=== PATIENT | male | born 1955 | race Caucasian/White ===

== ENCOUNTER 2024-01-30 07:12 | Outpatient (OUT) | payer MEDICARE, SELFPAY ==
[2024-01-30 07:28] LABS: Basophils Percent Auto 0.3 % (0.2-2.0); Eosinophils Absolute Auto 0.1 10^3/uL (0.0-0.7); Eosinophils Percent Auto 1.6 % (0.9-7.0); Hematocrit 38.2 % (42.0-54.0); Hemoglobin 12.2 g/dL (14.0-18.0); Immature Granulocytes Abs Auto 0.01 10^3/uL (0.00-0.03); Immature Granulocytes Pct Auto 0.2 % (0.0-0.5); Lymphocytes Absolute Auto 1.7 10^3/uL (1.2-3.8); Lymphocytes Percent Auto 25.9 % (20.5-60.0); Mean Corpuscular HGB Conc 31.9 g/dL (29.9-35.2); Mean Corpuscular Hemoglobin 28.9 pg (25.9-34.0); Mean Corpuscular Volume 90.5 fL (80.0-94.0); Monocytes Absolute Auto 0.8 10^3/uL (0.3-0.8); Monocytes Percent Auto 11.6 % (1.7-12.0); Neutrophils Absolute Auto 3.9 10^3/uL (1.4-6.5); Neutrophils Percent Auto 60.4 % (43.0-75.0); Platelet Count 288 10^3/uL (150-450); Red Blood Count 4.22 10^6/uL (4.70-6.10); Red Cell Distribution Width 11.7 % (11.0-15.0); White Blood Count 6.4 10^3/uL (4.0-11.0)
[2024-01-30 07:29] LABS: Bilirubin Urine NEGATIVE (NEGATIVE); Blood Urine NEGATIVE (NEGATIVE); Clarity Urine CLEAR (CLEAR); Color Urine LT. YELLOW (YELLOW); Glucose Urine UA NEGATIVE (NEGATIVE); Ketones Urine NEGATIVE (NEGATIVE); Leukocyte Esterase Urine NEGATIVE (NEGATIVE); Nitrite Urine NEGATIVE (NEGATIVE); Protein Urine NEGATIVE (NEG/TRACE); Specific Gravity Urine 1.015 (1.005-1.025); Urobilinogen Urine 0.2 EU/dL (0.2-1.0)
[2024-01-30 08:25] LABS: Alanine Aminotransferase 45 U/L (16-63); Albumin Globulin Ratio 0.9; Albumin Level 3.5 g/dL (3.4-5.0); Alkaline Phosphatase 76 U/L (46-116); Anion Gap 7.2; Aspartate Amino Transferase 33 U/L (15-37); BUN Creatinine Ratio 15.4; Bilirubin Total 0.3 mg/dL (0.2-1.0); Calcium 8.6 mg/dL (8.5-10.1); Carbon Dioxide 30.5 mmol/L (21.0-32.0); Chloride 101 mmol/L (98-107); Chol HDL Ratio 4.3; Cholesterol 215 mg/dL (<=200); Estimated GFR (African America >60 (>=60); Estimated GFR (Non-African Ame >60 (>=60); Globulin 3.9 g/dL; Glucose 83 mg/dL (74-106); HDL Cholesterol 50 mg/dL (40-60); Potassium 3.7 mmol/L (3.5-5.1); Sodium 135 mmol/L (136-145); Total Protein 7.4 g/dL (6.4-8.2); Triglycerides 97 mg/dL (<=150); VLDL CHOLESTEROL 19.4 mg/dL
[2024-01-30 09:16] LABS: Prostate Specific Antigen Scrn 0.42 ng/mL (<=4.00)
== END 2024-01-30 07:13 | disposition home or self-care (01) ==
LOC: LAB 07:12
PROVIDERS: PCP Family Medicine; Visit Provider Family Medicine
DX: E78.5 Hyperlipidemia, unspecified (principal); Z12.5 Encounter for screening for malignant neoplasm of prostate; R35.1 Nocturia
CPT/HCPCS: 36415; 80053; 80061; 81003; 85025; G0103

== ENCOUNTER 2024-03-04 16:05 | Outpatient (OUT) | payer MEDICARE, SELFPAY ==
--- OUTSIDE RECORDS SUMMARY | 2024-03-04 16:09 | XMS_ITS | CCD ---
Author Organization [facility] [employer] [facility] Medications Current Medications Medication Drug Class(es) Dates Sig (Normalized) Sig (Original) mecobalamin (1 source) Start: 02-07-2024 Mecobalamin (Vitamin B12) Active MCG PO .q3days February 07, 2024 12:00am Cf-Dsq-Rijmo-K1-Lyc open-Lutein (Centrum Silver Men) [id number] mcg tablet (1 source) Start: 02-07-2024 take 1 tablet by mouth once daily Ql-Kij-Wtuya-K1-Ly copen-Lutein (Centrum Silver Men) [id number] mcg tablet Active 1 TAB PO Daily February 07, 2024 12:00am Problems Problem Classification Problem Date Documented Da te Episodic/Chronic Deficiency and other anemia (1 source) Hemoglobin low; Translations: [Anemia, unspecified] 02-07-2024 Episodic Deficiency and other anemia (1 source) Anemia, unspecified; Translations: [Anemia, unspecified] 02-07-2024 Episodic Disorders of lipid metabolism (2 sources) Hyperlipidemia; Translations: [Hyperlipidemia, unspecified] 02-07-2024 Chronic Other lower respiratory disease (1 source) Dyspnea; Translations: [Shortness of breath] 02-07-2024 Episodic Other lower respiratory disease (1 source) Shortness of breath; Translations: [Shortness of breath] 02-07-2024 Episodic Other nutritional; endocrine; and metabolic disorders (1 source) Weight loss; Translations: [Abnormal weight loss] 02-07-2024 Episodic Other nutritional; endocrine; and metabolic disorders (1 source) Abnormal weight loss; Translations: [Loss of weight] 02-07-2024 Episodic Other screening for suspected conditions (not mental disorders or infectious disease) (2 sources) Patient encounter status; Translations: [Encounter for screening for malignant neoplasm of prostate] 10-02-2024 Episodic Results Test Name Value Interpretation Reference Range Facil ity Basophils Auto (Bld) [#/Vol] on 01-30-2024 Basophils (Bld) [#/Vol] 0.0 10 3/uL 0.0-0.1 [facility] Basophils/100 WBC Auto (Bld) on 01-30-2024 Basophils/100 WBC (Bld) 0.3 % 0.2-2.0 [facility] Cholesterol in LDL Calc [Mas s/Vol]on 01-30-2024 Cholesterol in LDL [Mass/Vol] 146.0 mg/dL [facility] Comment on above: <100 mg/dl [id number] 0-129 mg/dl NEAR OR ABOVE [id number] mg/dl BORDERLINE [id number] mg/dl HIGH>190 mg/dl VERY HIGH Cholesterol in VLDL Calc [Ma ss/Vol]on 01-30-2024 Cholesterol in VLDL [Mass/Vol] 19.4 mg/dL [facility] Eosinophils/100 WBC Auto (Bl d)on 01-30-2024 Eosinophils/100 WBC (Bld) 1.6 % 0.9-7.0 [facility] Erythrocyte distribution wid th Auto (RBC) [Ratio]on 01-30-2024 Erythrocyte distribution width (RBC) [Ratio] 11.7 % 11.0-15.0 [facility] Estimated glomerular filtrat ion rate (GFR) non- Americanon 01-30-2024 GFR/1.73 sq M.predicted among non-blacks MDRD (S/P/Bld) [Vol rate/Area] mL/min/{1.73_m2} >=60 [facility] Globulin Calc (S) [Mass/Vol] on 01-30-2024 Globulin (S) [Mass/Vol] 3.9 g/dL [facility] Hematocrit Auto (Bld) [Volum e fraction]on 01-30-2024 Hematocrit (Bld) [Volume fraction] 38.2 % Low 42.0-54.0 [facility] Hemoglobin [Mass/volume] in Bloodon 01-30-2024 Hemoglobin (Bld) [Mass/Vol] 12.2 g/dL Low 14.0-18.0 [facility] Laboratory - Chemistry and C hemistry - challengeon 01-30-2024 Albumin [Mass/Vol] 3.5 g/dL 3.4-5.0 [facility] ALP [Catalytic activity/Vol] 76 U/L 46-116 [facility] ALT [Catalytic activity/Vol] 45 U/L 16-63 [facility] AST [Catalytic activity/Vol] 33 U/L 15-37 [facility] Bilirubin [Mass/Vol] 0.3 mg/dL 0.2-1.0 [facility] Calcium [Mass/Vol] 8.6 mg/dL 8.5-10.1 [facility] Chloride [Moles/Vol] 101 mmol/L 98-107 [facility] Cholesterol [Mass/Vol] 215 mg/dL High <=200 [facility] Cholesterol in HDL [Mass/Vol] 50 mg/dL 40-60 [facility] Comment on above: > or =60 mg/dl - LOW CARDIOVASCULAR RISK<40 mg/dl - HIGH CARDIOVASCULAR RISK CO2 [Moles/Vol] 30.5 mmol/L 21.0-32.0 [facility] Creatinine [Mass/Vol] 0.91 mg/dL 0.70-1.30 [facility] GFR/1.73 sq M.predicted MDRD (S/P/Bld) [Vol rate/Area] mL/min/{1.73_m2} >=60 [facility] Glucose [Mass/Vol] 83 mg/dL 74-106 [facility] Potassium [Moles/Vol] 3.7 mmol/L 3.5-5.1 [facility] Protein [Mass/Vol] 7.4 g/dL 6.4-8.2 [facility] Sodium [Moles/Vol] 135 mmol/L Low 136-145 [facility] Triglyceride [Mass/Vol] 97 mg/dL <=150 [facility] Urea nitrogen [Mass/Vol] 14.0 mg/dL 7.0-18.0 [facility] Urea nitrogen/Creatinine [Mass ratio] 15.4 mg/mg [facility] Bilirubin Ql (U) Negative NEGATIVE [facility] Glucose (U) [Mass/Vol] Negative NEGATIVE [facility] Ketones Ql (U) Negative NEGATIVE [facility] pH (U) 7.0 [pH] 5.0-9.0 [facility] Specific gravity (U) [Rel density] 1.015 1.005-1.025 [facility] Urobilinogen Qn (U) 0.2 {Mason'U}/dL 0.2-1.0 [facility] Laboratory - Hematology and Cell countson 01-30-2024 Immature granulocytes/100 WBC (Bld) 0.2 % 0.0-0.5 [facility] Laboratory - Specimen inform ationon 01-30-2024 Appearance (U) CLEAR CLEAR [facility] Color (U) LT. YELLOW YELLOW [facility] Laboratory - Urinalysison Leukocyte esterase Test strip Ql (U) Negative NEGATIVE [facility] Nitrite Ql (U) Negative NEGATIVE [facility] Protein Ql (U) Negative NEG/TRACE [facility] Leukocytes [#/volume] correc starla for nucleated erythrocytes in Blood by Automated counon 01-30-2024 WBC corrected for nucl RBC Auto (Bld) [#/Vol] 6.4 10 3/uL 4.0-11.0 [facility] Lymphocytes Auto (Bld) [#/Vo l]on 01-30-2024 Lymphocytes (Bld) [#/Vol] 1.7 10 3/uL 1.2-3.8 [facility] Lymphocytes/100 WBC Auto (Bl d)on 01-30-2024 Lymphocytes/100 WBC (Bld) 25.9 % 20.5-60.0 [facility] MCH Auto (RBC) [Entitic mass ]on 01-30-2024 MCH (RBC) [Entitic mass] 28.9 pg 25.9-34.0 [facility] MCHC Auto (RBC) [Mass/Vol]on 01-30-2024 MCHC (RBC) [Mass/Vol] 31.9 g/dL 29.9-35.2 [facility] MCV Auto (RBC) [Entitic vol] on 01-30-2024 MCV (RBC) [Entitic vol] 90.5 fL 80.0-94.0 [facility] Monocytes Auto (Bld) [#/Vol] on 01-30-2024 Monocytes (Bld) [#/Vol] 0.8 10 3/uL 0.3-0.8 [facility] Monocytes/100 WBC Auto (Bld) on 01-30-2024 Monocytes/100 WBC (Bld) 11.6 % 1.7-12.0 [facility] Neutrophils Auto (Bld) [#/Vo l]on 01-30-2024 Neutrophils (Bld) [#/Vol] 3.9 10 3/uL 1.4-6.5 [facility] Neutrophils/100 WBC Auto (Bl d)on 01-30-2024 Neutrophils/100 WBC (Bld) 60.4 % 43.0-75.0 [facility] No Panel Informationon 01-29 Eosinophils # (Auto) 0.1 10 3/uL 0.0-0.7 [facility] Immature Granulocyte # (Auto) 0.01 10 3/uL 0.00-0.03 [facility] Prostate Specific Antigen Screen 0.42 ng/mL <=4.00 [facility] Urine Occult Blood Negative NEGATIVE [facility] Platelet mean volume Auto (B ld) [Entitic vol]on 01-30-2024 Platelet mean volume (Bld) [Entitic vol] 10.0 fL 9.5-13.5 [facility] Platelets Auto (Bld) [#/Vol] on 01-30-2024 Platelets (Bld) [#/Vol] 288 10 3/uL 150-450 [facility] RBC Auto (Bld) [#/Vol]on RBC (Bld) [#/Vol] 4.22 10 6/uL Low 4.70-6.10 [facility] Serum or plasma albumin/glob ulin mass ratioon 01-30-2024 Albumin/Globulin [Mass ratio] 0.9 {ratio} [facility] Serum or plasma anion gap de terminationon 01-30-2024 Anion gap [Moles/Vol] 7.2 mmol/L [facility] Serum or plasma total choles terol/high density lipoprotein (HDL) cholesterol mass dayan 01-30-2024 Cholesterol.total/Cho lesterol in HDL [Mass ratio] 4.3 {ratio} [facility] Comment on above: 3.3 - 4.4 LOW RISK4. 4 - 7.1 AVERAGE RISK7.1 - 11.0 MODERATE RISK>11.0 HIGH RISK Vital Signs Date Time Vital Sign Value Performing Clinician Christiana ramos 02-07-2024 09:36-0400 Body height 171.45 cm [facility] 02-07-2024 09:36-0400 Body mass index (BMI) [Ratio] 23.1 kg/m2 [facility] 02-07-2024 09:36-0400 Body temperature 97.7 [degF] [facility] 02-07-2024 09:36-0400 Body weight 68.03 kg [facility] 02-07-2024 09:36-0400 Diastolic blood pressure 64 mm[Hg] [facility] 02-07-2024 09:36-0400 Heart rate 57 /min [facility] 02-07-2024 09:36-0400 Respiratory rate 16 /min [facility] 02-07-2024 09:36-0400 SaO2% (BldA) [Mass fraction] 99 % [facility] 02-07-2024 09:36-0400 Systolic blood pressure 112 mm[Hg] [facility] Encounters Encounter Date Encounter Type Care Provider Facility Start: 02-07-2024 End: 02-07-2024 ambulatory [facility] Work Phone: Start: 02-07-2024 End: 02-07-2024 Patient encounter procedure [facility] [place] Work Phone: Start: 01-30-2024 Non-patient / Non-visit [facility] Work Phone: Plan of Treatment Date Care Activity Detail Author Start: 02-07-2024 Patient referral [facility] Work Phone: Patient referral [facility] Work Phone: [facility] Immunizations Immunization Date Immunization Notes Care Provider Fa cilikirti 02-21-2023 COVID-19 (PFIZER) 12Y and older [facility] 02-21-2023 Influenza vaccine, quadrivalent, adjuvanted [facility] 04-11-2021 COVID-19 mRNA, Comir jimmy (Pfizer) [facility] 02-20-2021 influenza, injectabl e, quadrivalent, preservative free [facility] 08-11-2020 COVID-19 mRNA, Comir jimmy (Pfizer) [facility] 07-20-2020 COVID-19 mRNA, Comir jimmy (Pfizer) [facility] 02-11-2020 Influenza, injectabl e, Madin Miley Canine Kidney, preservative free, quadrivalent [facility] 04-17-2012 influenza, seasonal, injectable [facility] Payers Date Payer Category Payer Policy ID Medicare Medicare [id number] Unknown [id number] Unknown [facility] Health Claims [id number] Social History Date Type Detail Facility Start: 02-07-2024 Tobacco smoking stat us KYIS Never smoked tobacco (finding) [facility] Start: 1955 Sex Assigned At Male [facility] Evaluation note Note Date & Type Note Facility Evaluation note Diagnosis Onset Date Hyperlipidemia acute Low hemoglobin acute Prostate cancer screening ac kathleen Shortness of breath acute Weight loss acute [facility] Work Phone: Hospital Discharge instructions Note Date & Type Note Facility Hospital Discharge instructions Ambulatory OrdersReferral to Gastroenterology Time Frame: 02/07/24, Location: None Selected [facility] Work Phone: Chief Complaint and Reason for Visit Chief Complaint review labs Reason for Visit Hyperlipidemia Low hemoglobin Prostate cancer screening Shortness of breath Weight loss Advance Directives Advance Directive Response Recorded Date/ Time Advance Directives No January 10:12am Additional Source Comments Care Teams (unrecognized sec tion and content) Team Status: Active Member Role Status Dates Rajeev Amador , DO Primary Care Provider Active Team Status: Active Member Role Status Dates Rajeev Amador , DO Primary Care Provide r, Attending Provider Active Start: January 30, 2024 Team Status: Inactive Member Role Status Dates Rajeev Amador , DO Primary Care Provide r, Attending Provider Active Start: February 07, 2024 End: February 07, 2024 Goals (unrecognized section and content) Goals may be documented in a n alternate section FOR RECORDS PERTAINING TO PATIENTS WHO ARE OR HAVE BEEN ENROLLED IN A CHEMICAL DEPENDENCY/SUBSTANCEABUSE PROGRAM, SOME INFORMATION MAY BE OMITTED. This clinical summary was aggregated from multiple sources. Caution should be exercised in using it in the provision of clinical care. This summary normalizes information from multiple sources, and as a consequence, information in this document may materially change the coding, format and clinical context of patient data. In addition, data may be omitted in some cases. CLINICAL DECISIONS SHOULD BE BASED ON THE PRIMARY CLINICAL RECORDS. [facility] [employer] [facility]. provides no warranty or guarantee of the accuracy or completeness of information in this document.
[2024-03-04 16:35] LABS: Basophils Percent Auto 0.3 % (0.2-2.0); Eosinophils Absolute Auto 0.1 10^3/uL (0.0-0.7); Hematocrit 38.5 % (42.0-54.0); Hemoglobin 12.6 g/dL (14.0-18.0); Immature Granulocytes Abs Auto 0.02 10^3/uL (0.00-0.03); Immature Granulocytes Pct Auto 0.3 % (0.0-0.5); Lymphocytes Absolute Auto 2.1 10^3/uL (1.2-3.8); Lymphocytes Percent Auto 29.8 % (20.5-60.0); Mean Corpuscular HGB Conc 32.7 g/dL (29.9-35.2); Mean Corpuscular Hemoglobin 29.2 pg (25.9-34.0); Mean Corpuscular Volume 89.1 fL (80.0-94.0); Monocytes Absolute Auto 0.9 10^3/uL (0.3-0.8); Monocytes Percent Auto 13.1 % (1.7-12.0); Neutrophils Absolute Auto 3.8 10^3/uL (1.4-6.5); Neutrophils Percent Auto 55.5 % (43.0-75.0); Platelet Count 271 10^3/uL (150-450); Red Blood Count 4.32 10^6/uL (4.70-6.10); Red Cell Distribution Width 12.2 % (11.0-15.0); White Blood Count 6.9 10^3/uL (4.0-11.0)
== END 2024-03-04 16:06 | disposition home or self-care (01) ==
LOC: LAB 16:06
PROVIDERS: PCP Family Medicine; Visit Provider Family Medicine
DX: D64.9 Anemia, unspecified (principal)
CPT/HCPCS: 36415; 85025

== ENCOUNTER 2024-04-09 07:53 | Outpatient (OUT) | payer MEDICARE, SELFPAY ==
[2024-04-09 15:12] LABS: Basophils Percent Auto 0.2 % (0.2-2.0); Eosinophils Absolute Auto 0.1 10^3/uL (0.0-0.7); Eosinophils Percent Auto 1.1 % (0.9-7.0); Hematocrit 39.6 % (42.0-54.0); Hemoglobin 13.1 g/dL (14.0-18.0); Immature Granulocytes Abs Auto 0.03 10^3/uL (0.00-0.03); Immature Granulocytes Pct Auto 0.4 % (0.0-0.5); Lymphocytes Percent Auto 24.1 % (20.5-60.0); Mean Corpuscular HGB Conc 33.1 g/dL (29.9-35.2); Mean Corpuscular Hemoglobin 29.1 pg (25.9-34.0); Mean Platelet Volume 9.9 fL (9.5-13.5); Monocytes Absolute Auto 0.9 10^3/uL (0.3-0.8); Monocytes Percent Auto 11.3 % (1.7-12.0); Neutrophils Absolute Auto 5.2 10^3/uL (1.4-6.5); Neutrophils Percent Auto 62.9 % (43.0-75.0); Platelet Count 274 10^3/uL (150-450); Red Cell Distribution Width 12.9 % (11.0-15.0); White Blood Count 8.3 10^3/uL (4.0-11.0)
--- OUTSIDE RECORDS SUMMARY | 2024-04-10 07:58 | XMS_ITS | CCD ---
Author Organization [facility] [employer] [facility] Medications Current Medications Medication Drug Class(es) Dates Sig (Normalized) Sig (Original) mecobalamin (1 source) Start: 02-07-2024 Mecobalamin (Vitamin B12) Active MCG PO .q3days February 07, 2024 12:00am Tx-Vnk-Qxtzy-K1-Lyc open-Lutein (Centrum Silver Men) [id number] mcg tablet (1 source) Start: 02-07-2024 take 1 tablet by mouth once daily Nh-Qvs-Ankjo-K1-Ly copen-Lutein (Centrum Silver Men) [id number] mcg tablet Active 1 TAB PO Daily [...] Basophils (Bld) [#/Vol] 0.0 10 3/uL 0.0-0.1 [facility] Basophils/100 WBC Auto (Bld) on 01-30-2024 Basophils/100 WBC (Bld) 0.3 % 0.2-2.0 [facility] Cholesterol in LDL Calc [Mas s/Vol]on 01-30-2024 Cholesterol in LDL [Mass/Vol] 146.0 mg/dL [facility] Comment on above: <100 mg/dl [id number] 0-129 mg/dl NEAR OR ABOVE FATVQDA471-369 mg/dl BORDERLINE [id number] mg/dl HIGH>190 mg/dl VERY HIGH Cholesterol in VLDL Calc [Ma ss/Vol]on 01-30-2024 Cholesterol in VLDL [Mass/Vol] 19.4 mg/dL [facility] Eosinophils/100 WBC Auto (Bl d)on 01-30-2024 Eosinophils/100 WBC (Bld) 1.6 % 0.9-7.0 [facility] Erythrocyte distribution wid th Auto (RBC) [Ratio]on 01-30-2024 Erythrocyte distribution width (RBC) [Ratio] 11.7 % 11.0-15.0 [facility] Estimated glomerular filtrat ion rate (GFR) non- Americanon 01-30-2024 GFR/1.73 sq M.predicted among non-blacks MDRD (S/P/Bld) [Vol rate/Area] mL/min/{1.73_m2} >=60 [facility] Globulin Calc (S) [Mass/Vol] on 01-30-2024 Globulin (S) [Mass/Vol] 3.9 g/dL [facility] Hematocrit Auto (Bld) [Volum e fraction]on 01-30-2024 Hematocrit (Bld) [Volume fraction] 38.2 % Low 42.0-54.0 [facility] Hemoglobin [Mass/volume] in Bloodon 01-30-2024 Hemoglobin (Bld) [Mass/Vol] 12.2 g/dL Low 14.0-18.0 [facility] Laboratory - Chemistry and C hemistry - challengeon 01-30-2024 Albumin [Mass/Vol] 3.5 g/dL 3.4-5.0 [facility] ALP [Catalytic activity/Vol] 76 U/L 46-116 [facility] ALT [Catalytic activity/Vol] 45 U/L 16-63 [facility] AST [Catalytic activity/Vol] 33 U/L 15-37 [facility] Bilirubin [Mass/Vol] 0.3 mg/dL 0.2-1.0 [facility] Calcium [Mass/Vol] 8.6 mg/dL 8.5-10.1 [facility] Chloride [Moles/Vol] 101 mmol/L 98-107 [facility] Cholesterol [Mass/Vol] 215 mg/dL High <=200 [facility] Cholesterol in HDL [Mass/Vol] 50 mg/dL 40-60 [facility] Comment on above: > or =60 mg/dl - LOW CARDIOVASCULAR RISK<40 mg/dl - HIGH CARDIOVASCULAR RISK CO2 [Moles/Vol] 30.5 mmol/L 21.0-32.0 [facility] Creatinine [Mass/Vol] 0.91 mg/dL 0.70-1.30 [facility] GFR/1.73 sq M.predicted MDRD (S/P/Bld) [Vol rate/Area] mL/min/{1.73_m2} >=60 [facility] Glucose [Mass/Vol] 83 mg/dL 74-106 [facility] Potassium [Moles/Vol] 3.7 mmol/L 3.5-5.1 [facility] Protein [Mass/Vol] 7.4 g/dL 6.4-8.2 [facility] Sodium [Moles/Vol] 135 mmol/L Low 136-145 [facility] Triglyceride [Mass/Vol] 97 mg/dL <=150 [facility] Urea nitrogen [Mass/Vol] 14.0 mg/dL 7.0-18.0 [facility] Urea nitrogen/Creatinine [Mass ratio] 15.4 mg/mg [facility] Bilirubin Ql (U) Negative NEGATIVE [facility] Glucose (U) [Mass/Vol] Negative NEGATIVE [facility] Ketones Ql (U) Negative NEGATIVE [facility] pH (U) 7.0 [pH] 5.0-9.0 [facility] Specific gravity (U) [Rel density] 1.015 1.005-1.025 [facility] Urobilinogen Qn (U) 0.2 {Mason'U}/dL 0.2-1.0 [facility] Laboratory - Hematology and Cell countson 01-30-2024 Immature granulocytes/100 WBC (Bld) 0.2 % 0.0-0.5 [facility] Laboratory - Specimen inform ationon 01-30-2024 Appearance (U) CLEAR CLEAR [facility] Color (U) LT. YELLOW YELLOW [facility] Laboratory - Urinalysison Leukocyte esterase Test strip Ql (U) Negative NEGATIVE [facility] Nitrite Ql (U) Negative NEGATIVE [facility] Protein Ql (U) Negative NEG/TRACE [facility] Leukocytes [#/volume] correc starla for nucleated erythrocytes in Blood by Automated counon 01-30-2024 WBC corrected for nucl RBC Auto (Bld) [#/Vol] 6.4 10 3/uL 4.0-11.0 [facility] Lymphocytes Auto (Bld) [#/Vo l]on 01-30-2024 Lymphocytes (Bld) [#/Vol] 1.7 10 3/uL 1.2-3.8 [facility] Lymphocytes/100 WBC Auto (Bl d)on 01-30-2024 Lymphocytes/100 WBC (Bld) 25.9 % 20.5-60.0 [facility] MCH Auto (RBC) [Entitic mass ]on 01-30-2024 MCH (RBC) [Entitic mass] 28.9 pg 25.9-34.0 [facility] MCHC Auto (RBC) [Mass/Vol]on 01-30-2024 MCHC (RBC) [Mass/Vol] 31.9 g/dL 29.9-35.2 [facility] MCV Auto (RBC) [Entitic vol] on 01-30-2024 MCV (RBC) [Entitic vol] 90.5 fL 80.0-94.0 [facility] Monocytes Auto (Bld) [#/Vol] on 01-30-2024 Monocytes (Bld) [#/Vol] 0.8 10 3/uL 0.3-0.8 [facility] Monocytes/100 WBC Auto (Bld) on 01-30-2024 Monocytes/100 WBC (Bld) 11.6 % 1.7-12.0 [facility] Neutrophils Auto (Bld) [#/Vo l]on 01-30-2024 Neutrophils (Bld) [#/Vol] 3.9 10 3/uL 1.4-6.5 [facility] Neutrophils/100 WBC Auto (Bl d)on 01-30-2024 Neutrophils/100 WBC (Bld) 60.4 % 43.0-75.0 [facility] No Panel Informationon 01-29 Eosinophils # (Auto) 0.1 10 3/uL 0.0-0.7 [facility] Immature Granulocyte # (Auto) 0.01 10 3/uL 0.00-0.03 [facility] Prostate Specific Antigen Screen 0.42 ng/mL <=4.00 [facility] Urine Occult Blood Negative NEGATIVE [facility] Platelet mean volume Auto (B ld) [Entitic vol]on 01-30-2024 Platelet mean volume (Bld) [Entitic vol] 10.0 fL 9.5-13.5 [facility] Platelets Auto (Bld) [#/Vol] on 01-30-2024 Platelets (Bld) [#/Vol] 288 10 3/uL 150-450 [facility] RBC Auto (Bld) [#/Vol]on RBC (Bld) [#/Vol] 4.22 10 6/uL Low 4.70-6.10 [facility] Serum or plasma albumin/glob ulin mass ratioon 01-30-2024 Albumin/Globulin [Mass ratio] 0.9 {ratio} [facility] Serum or plasma anion gap de terminationon 01-30-2024 Anion gap [Moles/Vol] 7.2 mmol/L [facility] Serum or plasma total choles terol/high density lipoprotein (HDL) cholesterol mass dayan 01-30-2024 Cholesterol.total/Cho lesterol in HDL [Mass ratio] 4.3 {ratio} [facility] Comment on above: 3.3 - 4.4 LOW RISK4. 4 - 7.1 AVERAGE RISK7.1 - 11.0 MODERATE RISK>11.0 HIGH RISK Vital Signs Date Time Vital Sign Value Performing Clinician Christiana ramos 02-07-2024 09:36-0400 Body height 171.45 cm [facility] 02-07-2024 09:36-0400 Body mass index (BMI) [Ratio] 23.1 kg/m2 [facility] 02-07-2024 09:36-0400 Body temperature 97.7 [degF] [facility] 02-07-2024 09:36-0400 Body weight 68.03 kg [facility] 02-07-2024 09:36-0400 Diastolic blood pressure 64 mm[Hg] [facility] 02-07-2024 09:36-0400 Heart rate 57 /min [facility] 02-07-2024 09:36-0400 Respiratory rate 16 /min [facility] 02-07-2024 09:36-0400 SaO2% (BldA) [Mass fraction] 99 % [facility] 02-07-2024 09:36-0400 Systolic blood pressure 112 mm[Hg] [facility] Encounters Encounter Date Encounter Type Care Provider Facility Start: 02-07-2024 End: 02-07-2024 ambulatory [facility] Work Phone: Start: 02-07-2024 End: 02-07-2024 Patient encounter procedure [facility] [place] Work Phone: Start: 01-30-2024 Non-patient / Non-visit [facility] Work Phone: Plan of Treatment Date Care Activity Detail Author Start: 02-07-2024 Patient referral [facility] Work Phone: Patient referral [facility] Work Phone: [facility] Immunizations Immunization Date Immunization Notes Care Provider Fa cilikirti 02-21-2023 COVID-19 (PFIZER) 12Y and older [facility] 02-21-2023 Influenza vaccine, quadrivalent, adjuvanted [facility] 04-11-2021 COVID-19 mRNA, Comir jimmy (Pfizer) [facility] 02-20-2021 influenza, injectabl e, quadrivalent, preservative free [facility] 08-11-2020 COVID-19 mRNA, Comir jimmy (Pfizer) [facility] 07-20-2020 COVID-19 mRNA, Comir jimmy (Pfizer) [facility] 02-11-2020 Influenza, injectabl e, Madin Miley Canine Kidney, preservative free, quadrivalent [facility] 04-17-2012 influenza, seasonal, injectable [facility] Payers Date Payer Category Payer Policy ID Medicare Medicare [id number] Unknown [id number] Unknown [facility] Health Claims [id number] 11 [id number] Social History Date Type Detail Facility Start: 02-07-2024 Tobacco smoking stat us MAIS Never smoked tobacco (finding) [facility] Start: 1955 Sex Assigned At Male F [facility] Evaluation note Note Date & Type Note Facility Evaluation note Diagnosis Onset Date Hyperlipidemia acute Low hemoglobin acute Prostate cancer screening ac kathleen Shortness of breath acute Weight loss acute [facility] Work Phone: Hospital Discharge instructions Note Date & Type Note Facility Hospital Discharge instructions Ambulatory OrdersReferral to Gastroenterology Time Frame: 02/07/24, Location: None Selected [facility] Work Phone: Chief Complaint and Reason [...] BE BASED ON THE PRIMARY CLINICAL RECORDS. [facility] [employer] [facility]. provides no warranty or guarantee of the accuracy or completeness of information in this document.
== END 2024-04-09 07:54 | disposition home or self-care (01) ==
LOC: LAB 04-10 07:55
PROVIDERS: PCP Family Medicine; Visit Provider Family Medicine
DX: Z79.899 Other long term (current) drug therapy (principal)
CPT/HCPCS: 36415; 85025

== ENCOUNTER 2025-02-04 13:43 | Outpatient (OUT) | payer MEDICARE, SELFPAY ==
[2025-02-04 07:12] LABS: Hematocrit 38.8 % (42.0-54.0); Hemoglobin 13.2 g/dL (14.0-18.0); Immature Granulocytes Abs Auto 0.02 10^3/uL (0.00-0.03); Immature Granulocytes Pct Auto 0.3 % (0.0-0.5); Lymphocytes Absolute Auto 1.7 10^3/uL (1.2-3.8); Mean Corpuscular HGB Conc 34.0 g/dL (29.9-35.2); Mean Corpuscular Hemoglobin 31.1 pg (25.9-34.0); Mean Corpuscular Volume 91.5 fL (80.0-94.0); Platelet Count 271 10^3/uL (150-450); Red Blood Count 4.24 10^6/uL (4.70-6.10); White Blood Count 6.2 10^3/uL (4.0-11.0)
[2025-02-04 07:35] LABS: Alanine Aminotransferase 28 U/L (16-63); Albumin Globulin Ratio 0.9; Albumin Level 3.6 g/dL (3.4-5.0); Alkaline Phosphatase 71 U/L (46-116); Anion Gap 12.7; Aspartate Amino Transferase 20 U/L (15-37); Blood Urea Nitrogen 16.0 mg/dL (7.0-18.0); Calcium 8.7 mg/dL (8.5-10.1); Carbon Dioxide 30.1 mmol/L (21.0-32.0); Chloride 101 mmol/L (98-107); Cholesterol 209 mg/dL (<=200); Estimated GFR (African America >60 (>=60 mL/min/1.73m^2); Estimated GFR (Non-African Ame >60 (>=60 mL/min/1.73m^2); Globulin 4.2 g/dL; Glucose 92 mg/dL (74-106); HDL Cholesterol 50 mg/dL (40-60); Potassium 3.8 mmol/L (3.5-5.1); Sodium 140 mmol/L (136-145); Thyroid Stimulating Hormone 2.137 uIU/mL (0.358-3.740); Total Protein 7.8 g/dL (6.4-8.2); Triglycerides 77 mg/dL (<=150); VLDL CHOLESTEROL 15.4 mg/dL
[2025-02-04 08:16] LABS: Prostate Specific Antigen Dx 0.39 ng/mL (<=4.00)
[2025-02-04 09:55] LABS: Glucose Urine UA NEGATIVE (NEGATIVE)
[2025-02-04 09:56] LABS: Cast Seen? NONE SEEN #/LPF (NONE SEEN); Crystals Seen? None Seen #/HPF (None Seen)
--- OUTSIDE RECORDS SUMMARY | 2025-02-05 13:49 | XMS_ITS | Clinical Summary ---
Author Organization [facility] Address [address] 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
== END 2025-02-04 13:44 | disposition home or self-care (01) ==
LOC: LAB 02-05 13:43
PROVIDERS: PCP Family Medicine; Visit Provider Family Medicine
DX: Z79.899 Other long term (current) drug therapy (principal); R35.1 Nocturia; Z12.5 Encounter for screening for malignant neoplasm of prostate; R63.4 Abnormal weight loss; E78.5 Hyperlipidemia, unspecified
CPT/HCPCS: 36415; 80053; 80061; 81001; 84153; 84443; 85025